=== PATIENT | male | born 1975 | race Two or more races ===

== ENCOUNTER 2019-06-30 07:26 | Emergency (ER) | payer SELFPAY ==
[~2019-06-30] VITALS: Ht 167.6 cm; Wt 72.6 kg
[2019-06-30] MEDS ORDERED: Morphine Sulfate 4mg/ml Inj (IV USE ONLY) IVP ONE (07:30)
[2019-06-30] MEDS ORDERED: Omnipaque-300 100ml vial INJ PRN (07:30)
[2019-06-30] MEDS ORDERED: NITROFURANTOIN100 M2 ORAL (07:32)
--- NOTE | 2019-06-30 07:35 | NUR ---
ED Nurse Note: Patient was brought in by ambulance. Per patient hes is experiencing abdominal pain and noted with blood in urine x4 days. Pain scale of 8/10 at this time. MD at bedside. Patient stated that he does not have constipation and diarrhea. Denies vomiting before. No episodes of n/v at this time
--- NOTE | 2019-06-30 07:39 | Emergency Room Report ---
History of Present Illness General Chief Complaint: Abdominal Pain Source: Patient Present Illness HPI 43-year-old male recent UTI diagnosis 4 days ago presents with dysuria, left flank pain, chills, no fever, no aggravating relieving factors severity is moderate, constant, patient is also endorsing blood in the urine, patient has a history of kidney stones, patient presents to the ED via EMS. Patient is currently been taking nitrofurantoin Allergies: Coded Allergies: No Known Allergies (Unverified , 06/30/19) Patient History Past Medical History: see triage record Reviewed Nursing Documentation: PMH: Agreed; PSxH: Agreed Nursing Documentation-PMH Past Medical History: No Stated History Review of Systems All Other Systems: negative except mentioned in HPI Physical Exam Vital Signs Date Time Temp Pulse Resp B/P (MAP) Pulse Ox O2 Delivery O2 Flow Rate FiO2 06/30/19 07:28 98.1 72 16 114/80 (91) 99 Room Air Sp02 EP Interpretation: reviewed, normal General Appearance: well appearing, no apparent distress, alert Head: normocephalic, atraumatic Eyes: bilateral eye PERRL, bilateral eye EOMI ENT: uvula midline, moist mucus membranes Neck: supple, thyroid normal, supple/symm/no masses Respiratory: lungs clear, no respiratory distress, no retraction, no accessory muscle use Cardiovascular #1: normal peripheral pulses, regular rate, rhythm, no edema, no gallop, no murmur Gastrointestinal: non tender, soft, no guarding, no rebound Musculoskeletal: normal inspection Neurologic: alert, oriented x3 Psychiatric: mood/affect normal Skin: no rash, warm/dry Medical Decision Making Diagnostic Impression: Primary Impression: UTI (urinary tract infection) Qualified Codes: N30.01 - Acute cystitis with hematuria Additional Impression: Bladder stone ER Course 43-year-old male presents with suprapubic pain, left flank pain concerning for pyelonephritis versus UTI versus nephrolithiasis Patient found to have a UTI, bladder stone, no evidence of ascending infection however we will change his antibiotics to Cefdinir, pain control with Naprosyn patient was medically complex requiring pain medications, advanced imaging Dispo home w/ return precautions Laboratory Tests Test 06/30/19 07:45 06/30/19 08:07 Urine Color Pale yellow Urine Appearance Slightly cloudy Urine pH 7 (4.5-8.0) Urine Specific [place] 1.015 (1.005-1.035) Urine Protein 1+ (NEGATIVE) H Urine Glucose (UA) Negative (NEGATIVE) Urine Ketones Negative (NEGATIVE) Urine Blood 5+ (NEGATIVE) H Urine Nitrite Negative (NEGATIVE) Urine Bilirubin Negative (NEGATIVE) Urine Urobilinogen Normal MG/DL (0.0-1.0) Urine Leukocyte Esterase 3+ (NEGATIVE) H Urine RBC Tntc /HPF (0 - 0) H Urine WBC 5-10 /HPF (0 - 0) H Urine Squamous Epithelial Cells Few /LPF (NONE/OCC) Urine Bacteria Few /HPF (NONE) White Blood Count 6.3 K/UL (4.8-10.8) Red Blood Count 5.05 M/UL (4.70-6.10) Hemoglobin 14.4 G/DL (14.2-18.0) Hematocrit 43.9 % (42.0-52.0) Mean Corpuscular Volume 87 FL (80-99) Mean Corpuscular Hemoglobin 28.5 PG (27.0-31.0) Mean Corpuscular Hemoglobin Concent 32.8 G/DL (32.0-36.0) Red Cell Distribution Width 12.8 % (11.6-14.8) Platelet Count 134 K/UL (150-450) L Mean Platelet Volume 7.5 FL (6.5-10.1) Neutrophils (%) (Auto) 43.7 % (45.0-75.0) L Lymphocytes (%) (Auto) 44.8 % (20.0-45.0) Monocytes (%) (Auto) 9.1 % (1.0-10.0) Eosinophils (%) (Auto) 1.8 % (0.0-3.0) Basophils (%) (Auto) 0.7 % (0.0-2.0) Prothrombin Time 10.6 SEC (9.30-11.50) Prothrombin Time INR 1.0 (0.9-1.1) PTT 29 SEC (23-33) Sodium Level 140 MMOL/L (136-145) Potassium Level 4.0 MMOL/L (3.5-5.1) Chloride Level 106 MMOL/L (98-107) Carbon Dioxide Level 28 MMOL/L (21-32) Anion Gap 6 mmol/L (5-15) Blood Urea Nitrogen 17 mg/dL (7-18) Creatinine 0.9 MG/DL (0.55-1.30) Estimate Glomerular Filtration Rate > 60 mL/min (>60) Glucose Level 96 MG/DL (74-106) Calcium Level 9.1 MG/DL (8.5-10.1) Total Bilirubin 0.6 MG/DL (0.2-1.0) Aspartate Amino Transferase (AST) 39 U/L (15-37) H Alanine Aminotransferase (ALT) 47 U/L (12-78) Alkaline Phosphatase 150 U/L (46-116) H Total Protein 7.6 G/DL (6.4-8.2) Albumin 3.7 G/DL (3.4-5.0) Globulin 3.9 g/dL Albumin/Globulin Ratio 0.9 (1.0-2.7) L Lipase 109 U/L (73-393) EKG Diagnostic Results EKG Time: 08:00 EP Interpretation: NSR Rate 66, QTc 425, no acute ST elevations, normal axis Rhythm Strip Diag. Results Rhythm Strip Time: 08:05 EP Interpretation: yes Rate: 71 Rhythm: NSR, no PVC's, no ectopy Chest X-Ray Diagnostic Results Chest X-Ray Diagnostic Results : Chest X-Ray Ordered: Yes # of Views/Limited/Complete: 1 View Indication: Other - abdominal pain EP Interpretation: Yes Interpretation: no consolidation, no effusion, no pneumothorax, no acute cardiopulmonary disease Impression: No acute disease Electronically Signed by: Stef Galicia MD CT/MRI/US Diagnostic Results CT/MRI/US Diagnostic Results : Impression Procedure: CT Abdomen Pelvis w/Contrast Clinical Indication: Abdominal pain, hematuria Technique: No oral contrast utilized, per emergency room physician request IV administration nonionic contrast. Venous phase spiral acquisition obtained through the abdomen and pelvis. Multiplanar reconstructions were generated. Total dose length product 1112 mGycm. CTDIvol(s) 18 mGy. Dose reduction achieved using automated exposure control Comparison: none Findings: There is a large bladder stone. This measures 3.4 cm in diameter. There is focal thickening of the anterior left lateral bladder wall. The prostate is not enlarged The left kidney demonstrates multiple calyceal calculi. There is mild left hydronephrosis. No ureteral calculi are evident. No right renal or ureteral calculi, right hydronephrosis or hydroureter. There are rather abundant although not frankly enlarged retroperitoneal lymph nodes noted. No renal mass or cyst demonstrated. The liver demonstrates slight surface nodularity. No focal abnormality. The spleen is enlarged, measuring 13.8 cm long axis dimension. Varices are seen surrounding the spleen. The gallbladder, bile ducts, pancreas are unremarkable. The adrenals are unremarkable. There is no evidence of colonic diverticulosis or diverticulitis. No small bowel distention. No free or loculated intraperitoneal gas or fluid is evident. The distal esophagus, stomach, duodenum are unremarkable. The appendix is normal. The included lung bases are clear. The bones are unremarkable. Impression: Positive for 3.4 cm bladder stone Anterior and left lateral lateral bladder wall thickening, somewhat focal. Could be on the basis of cystitis changes or chronic bladder outlet obstruction, but the possibility of neoplasm should also be considered with consideration for cystoscopy. Mild left hydronephrosis, etiology not definitely demonstrated Nonobstructive left renal calyceal calculi Hepatic surface nodularity, suspicious for cirrhosis. There is evidence of portal hypertension, with splenomegaly and perisplenic varices Nonspecific abundant but not frankly enlarged retroperitoneal lymph nodes The CT scanner at [facility] is accredited by the [employer] and the scans are performed using protocols designed to limit radiation exposure to as low as reasonably achievable to attain images of sufficient resolution adequate for diagnostic evaluation. Dictated By: Pola Ontiveros MD Electronically Signed By: Pola Ontiveros MD Signed Date/Time 06/30/19 0936 CC: Stef Galicia MD Last Vital Signs Date Time Temp Pulse Resp B/P (MAP) Pulse Ox O2 Delivery O2 Flow Rate FiO2 06/30/19 07:28 98.1 72 16 114/80 (91) 99 Room Air Disposition: HOME, SELF-CARE Condition: Stable Scripts Naproxen* (NAPROSYN*) 250 Mg Tablet 250 MG ORAL BID PRN for For Pain, #20 TAB 0 Refills Prov: Stef Galicia MD 06/30/19 Cefdinir (CEFDINIR) 300 Mg Capsule 300 MG PO BID, #20 CAP Prov: Stef Galicia MD 06/30/19 Referrals: [facility] Jaquan [facility] Patient Instructions: Cystoscopy, Urinary Tract Infection, [id number] Additional Instructions: The patient was provided with discharge instructions, notified to follow-up with a primary care doctor and or specialist in the next 24-48 hours, and to return to the ED if they have worsening of their symptoms. Please note that this report is being documented using [employer] technology. This can lead to erroneous entry secondary to incorrect interpretation by the dictating instrument. PLEASE OBTAIN A CYSTOSCOPY AN OUTPATIENT WITH UROLOGY Stef Galicia MD Jun 30, 2019 07:39
[2019-06-30] MEDS ORDERED: cefTRIAXone 1 GM in NS 55 ML IVPB ONE (07:45)
[2019-06-30] MEDS ORDERED: Ketorolac 30mg Inj IV ONE (07:45)
--- NOTE | 2019-06-30 07:46 | NUR ---
ED Nurse Note: Pt stated she has abdominal pain on RLQ areax 4 days, no complaint of n/v/d. Last bowel movement was yesterday and normal. Pain 9/10, aching upon arrival. AOOx4, vital signs stable. Pt urinated x 1, light becky colored urine noted. Will cont to monitor.
[2019-06-30 07:53] LABS: APPEARANCE,URINE SLIGHTLY CLOUDY; BILIRUBIN, URINE NEGATIVE (NEGATIVE); COLOR,URINE PALE YELLOW; GLUCOSE, URINE (UA) NEGATIVE (NEGATIVE); KETONES,URINE NEGATIVE (NEGATIVE); LEUKOCYTE ESTERASE ,URINE 3+ (NEGATIVE); NITRITE,URINE NEGATIVE (NEGATIVE); PH,URINE 7 (4.5-8.0); PROTEIN,URINE 1+ (NEGATIVE); UROBILINOGEN,URINE NORMAL MG/DL (0.0-1.0)
[2019-06-30 08:12] VITALS: BP 104/82
[2019-06-30 08:27] LABS: BASOPHILS % (AUTO) 0.7 % (0.0-2.0); EOSINOPHILS % (AUTO) 1.8 % (0.0-3.0); HEMATOCRIT 43.9 % (42.0-52.0); HEMOGLOBIN 14.4 G/DL (14.2-18.0); LYMPHOCYTES % (AUTO) 44.8 % (20.0-45.0); MEAN CORPUSCULAR VOLUME 87 FL (80-99); MONOCYTES % (AUTO) 9.1 % (1.0-10.0); NEUTROPHILS % (AUTO) 43.7 % (45.0-75.0); PLATELET COUNT 134 K/UL (150-450); RED BLOOD COUNT 5.05 M/UL (4.70-6.10); RED CELL DISTRIBUTION WIDTH 12.8 % (11.6-14.8); WHITE BLOOD COUNT 6.3 K/UL (4.8-10.8)
[2019-06-30 08:30] LABS: ANION GAP 6 mmol/L (5-15); BLOOD UREA NITROGEN 17 mg/dL (7-18); CALCIUM 9.1 MG/DL (8.5-10.1); CARBON DIOXIDE 28 MMOL/L (21-32); CHLORIDE 106 MMOL/L (98-107); CREATININE 0.9 MG/DL (0.55-1.30); SODIUM 140 MMOL/L (136-145)
[2019-06-30 08:41] LABS: ALANINE AMINOTRANSFERASE 47 U/L (12-78); ALBUMIN 3.7 G/DL (3.4-5.0); ALBUMIN/GLOBULIN RATIO 0.9 (1.0-2.7); ALKALINE PHOSPHATASE 150 U/L (46-116); ASPARTATE AMINO TRANSFERASE 39 U/L (15-37); BILIRUBIN,TOTAL 0.6 MG/DL (0.2-1.0)
--- NOTE | 2019-06-30 08:57 | NUR ---
ED Nurse Note: Pt down to CT via gurney, no sign of acute distress.
[2019-06-30 09:12] VITALS: BP 133/71
--- NOTE | 2019-06-30 09:12 | NUR ---
ED Nurse Note: Pt back fromCT via judi. Vital signs stable.
--- NOTE | 2019-06-30 09:41 | Diagnostic Imaging Report ---
Clinical Indication: Abdominal pain, hematuria Technique: No oral contrast utilized, per emergency room physician request IV administration nonionic contrast. Venous phase spiral acquisition obtained through the abdomen and pelvis. Multiplanar reconstructions were generated. Total dose length product 1112 mGycm. CTDIvol(s) 18 mGy. Dose reduction achieved using automated exposure control Comparison: none Findings: There is a large bladder stone. This measures 3.4 cm in diameter. There is focal thickening of the anterior left lateral bladder wall. The prostate is not enlarged The left kidney demonstrates multiple calyceal calculi. There is mild left hydronephrosis. No ureteral calculi are evident. No right renal or ureteral calculi, right hydronephrosis or hydroureter. There are rather abundant although not frankly enlarged retroperitoneal lymph nodes noted. No renal mass or cyst demonstrated. The liver demonstrates slight surface nodularity. No focal abnormality. The spleen is enlarged, measuring 13.8 cm long axis dimension. Varices are seen surrounding the spleen. The gallbladder, bile ducts, pancreas are unremarkable. The adrenals are unremarkable. There is no evidence of colonic diverticulosis or diverticulitis. No small bowel distention. No free or loculated intraperitoneal gas or fluid is evident. The distal esophagus, stomach, duodenum are unremarkable. The appendix is normal. The included lung bases are clear. The bones are unremarkable. Impression: Positive for 3.4 cm bladder stone Anterior and left lateral lateral bladder wall thickening, somewhat focal. Could be on the basis of cystitis changes or chronic bladder outlet obstruction, but the possibility of neoplasm should also be considered with consideration for cystoscopy. Mild left hydronephrosis, etiology not definitely demonstrated Nonobstructive left renal calyceal calculi Hepatic surface nodularity, suspicious for cirrhosis. There is evidence of portal hypertension, with splenomegaly and perisplenic varices Nonspecific abundant but not frankly enlarged retroperitoneal lymph nodes The CT scanner at [facility] is accredited by the [employer] and the scans are performed using protocols designed to limit radiation exposure to as low as reasonably achievable to attain images of sufficient resolution adequate for diagnostic evaluation.
[2019-06-30] MEDS ORDERED: CEFDINIR300 MG PO (09:58)
[2019-06-30] MEDS ORDERED: NAPROXEN250 MG ORAL (09:58)
[2019-06-30 10:08] VITALS: BP 113/75
[2019-06-30 10:09] VITALS: BP 113/75
--- NOTE | 2019-06-30 10:09 | NUR ---
ER DISCHARGE NOTE: Patient is cleared to be discharged per ERMD, pt is aox4, on room air, with stable vital signs. pt was given dc and prescription instructions, pt was able to verbalize understanding, pt id band and iv site removed without complications. pt is able to ambulate with steady gait. pt took all belongings.
--- NOTE | 2019-06-30 14:00 | Cardiology Report ---
APPROVED REPORT EKG Measurement Heart [id number] Normal sinus rhythm Normal ECG
--- NOTE | 2019-06-30 15:46 | Diagnostic Imaging Report ---
Indication: Chest pain Technique: One view of the chest Comparison: none Findings: There is a calcified granuloma in the left upper lobe. Lungs pleural spaces are otherwise clear. The heart size is normal Impression: No acute process Evidence of old granulomatous disease
== END 2019-06-30 10:09 | disposition home or self-care (01) ==
LOC: EDBD 07:26 → EMR 07:40
DX: N30.01 Acute cystitis with hematuria (principal); N21.0 Calculus in bladder; N20.0 Calculus of kidney; Z87.442 Personal history of urinary calculi; K76.6 Portal hypertension; R16.1 Splenomegaly, not elsewhere classified; I86.8 Varicose veins of other specified sites; R59.0 Localized enlarged lymph nodes; R07.9 Chest pain, unspecified
CPT/HCPCS: 36415; 71045; 74177; 80053; 81003; 83690; 85025; 85610; 85730; 86850; 86900; 86901; 93005; 96365; 96375; 99284; J0696; J1885; J2270; J2405; Q9967; S0028